=== PATIENT | female | born 1995 | race Caucasian/White ===

== ENCOUNTER → 2019-03-23 | Day surgery (SDC) | payer OTHER | END | disposition home or self-care (01) | LOC: ADM 03-16 09:00 → CIR.AMB 09:00 | DX: N36.1 Urethral diverticulum (principal) ==

== ENCOUNTER → 2019-08-28 | Emergency (ER) | payer OTHER ==
[~2019-08-28] VITALS: Ht 160 cm; Wt 63.5 kg
== END | disposition home or self-care (01) ==
LOC: ER 19:58
DX: R60.0 Localized edema (principal)

== ENCOUNTER 2021-11-07 15:44 | Emergency (ER) | payer OTHER ==
[~2021-11-07] VITALS: Ht 160 cm; Wt 63.5 kg
== END 2021-11-07 19:42 | disposition home or self-care (01) ==
LOC: ER 15:44
DX: R20.0 Anesthesia of skin (principal); F41.9 Anxiety disorder, unspecified; R00.2 Palpitations; Z72.0 Tobacco use